=== PATIENT | male | born 1960 | race Caucasian/White ===

== ENCOUNTER 2021-07-15 03:06 | Day surgery (SDC) | payer OTHER, SELFPAY ==
[2021-06-26 15:13] VITALS: BMI 22.9
--- NOTE | 2021-07-12 13:01 | PM.HPGS ---
History of Present Illness History of Present Illness Consent: Risks, benefits, and alternatives have been discussed and questions answered. Patient agrees to proceed with procedure. Chief complaint: neoplasm screening Narrative: Adrian De La Rosa is a 60 year old male Who was referred for colon cancer screening. Review of Systems Review of Systems: All systems reviewed & are unremarkable except as noted in HPI and below PMFSH Past Medical History Medical History BMI 26.0-26.9,adult Mixed hyperlipidemia Screen for colon cancer Screening for prostate cancer Family History Family History Other ADHD Allergies Anxiety FHx: stomach cancer Hypertension Social History Social History Smoking packs per day: 0.75 Smoking cigarettes per day: 15.0 Years smoked: 30 Smoking pack-years: 22.50 Smoking status: Former smoker Tobacco type: cigarettes and e-cigarettes/vaping Additional smoking assessment comments: quit cigarettes, vapes nicotine daily Alcohol intake: never Substance use type: does not use Living arrangements: with family Spiritual care concerns: No Meds Home Medications and Allergies Home Medications Medication Instructions Recorded Confirmed Type No Home Medications 06/03/21 06/26/21 History Allergies Allergy/AdvReac Type Severity Reaction Status Date / Time No Known Allergies Allergy Verified 07/15/21 08:38 Exam Resp: Auscultation: clear to auscultation bilaterally Cardio: Rate: regular rate Rhythm: regular rhythm GI: GI Palp: Yes Soft to palpation and No Tenderness to palpation present (GI) Assessment and Plan Assessment and plan (1) Screen for colon cancer: Code(s): Z12.11 - Encounter for screening for malignant neoplasm of colon Status: Acute Assessment and Plan: Colonoscopy with possible biopsy or polypectomy or cautery or injection of substances.
--- NOTE | 2021-07-15 08:24 | WPDANESEPPF ---
Anes - Initial Pre Proc Eval Procedure: Operation Date: 07/15/21 10:00 Proposed Procedures p Screening Colonoscopy - Mark Guzman MD Date/Time: 07/15/21 08:24 Surgeon: Mark Guzman MD Pre Op Diagnosis: neoplasm screening Patient Data Age: 60 Gender: M Height: 1.75 m Weight: 70.6 kg Allergies Allergy/AdvReac Type Severity Reaction Status Date / Time No Known Allergies Allergy Verified 07/15/21 08:38 Home Medications Medication Instructions Recorded Confirmed Type No Home Medications 06/03/21 06/26/21 History Patient hx anesthesia problems: none Family hx anesthesia problems: none Results Review: All pre-operative results and documents have been reviewed as part of the pre-operative evaluation. [facility] Past Medical History Medical History (Updated 06/03/21 @ 17:55 by Joel Mcmillan MD) BMI 26.0-26.9,adult Mixed hyperlipidemia Screen for colon cancer Screening for prostate cancer Family History Family History Other ADHD Allergies Anxiety FHx: stomach cancer Hypertension Social History Social History Smoking packs per day: 0.75 Smoking cigarettes per day: 15.0 Years smoked: 30 Smoking pack-years: 22.50 Smoking status: Former smoker Tobacco type: cigarettes and e-cigarettes/vaping Additional smoking assessment comments: quit cigarettes, vapes nicotine daily Alcohol intake: never Substance use type: does not use Living arrangements: with family Spiritual care concerns: No Anes - Eval Final PreProcedure Day of Procedure 07/15/21 08:24 Patient weight: normal Heart: regular rate and rhythm Lungs: clear to auscultation and normal air movement Airway: Mallampati scale class II Neurological: alert and oriented Last oral intake: >/= 8 hours ASA classification: II Emergent: no Anesthetic plan: proceed Anesthesia type and monitoring: general GIVS and standard monitoring Results Review: All pre-operative results and documents have been reviewed as part of the pre-operative evaluation. Informed Consent: The patient's anesthetic plan and its attendant risks and benefits were discussed with the patient/family/POA. Questions were solicited and answers provided to the satisfaction of the patient/family/POA.
[2021-07-15 08:39] VITALS: BP 118/85; PULSE 80; RESP 18; TEMP 36.2; O2SAT 100
[2021-07-15] MEDS: LACTATED RINGERS 1,000 ML 150 ML IV CONT (08:49)
[2021-07-15 09:47] VITALS: BP 94/62; PULSE 64; RESP 16; O2SAT 97
[2021-07-15 09:57] VITALS: BP 118/65; PULSE 60; RESP 20; O2SAT 98
[2021-07-15 10:07] VITALS: BP 119/70; PULSE 56; RESP 22; O2SAT 99
== END 2021-07-15 10:17 | disposition home or self-care (01) ==
PROVIDERS: PCP Family Medicine; Visit Provider Internal Medicine Gastroenterology
PROC: 0DJD8ZZ Inspection of Lower Intestinal Tract, Via Natural or Artificial Opening Endoscopic (ICD-10-PCS; CPT 45378; principal; 2021-07-15 10:00)
DX: Z12.11 Encounter for screening for malignant neoplasm of colon (principal); K57.30 Diverticulosis of large intestine without perforation or abscess without bleeding; F17.290 Nicotine dependence, other tobacco product, uncomplicated
CPT/HCPCS: 45378; J2704; J7120